=== PATIENT | male | born 1955 | race Caucasian/White ===

== ENCOUNTER → 2018-10-03 | Outpatient (CLI) | payer OTHER, SELFPAY ==
[2018-09-17 11:05] VITALS: BMI 34.9
--- NOTE | 2018-10-03 13:43 | CT_ITS ---
STUDY: CT CHEST WITHOUT CONTRAST REASON FOR EXAM: Male, 63 years old. Shortness of breath with exertion. RADIATION DOSAGE (If Supplied By Facility): CTDIvol = ( 14.8 ) mGy, DLP = ( 473.25 ) mGycm TECHNIQUE: Transaxial imaging was performed without the administration of intravenous contrast material. Multiplanar coronal and sagittal images were reformatted. Individualized dose optimization techniques were used for this CT. COMPARISON: None. FINDINGS: There is mild emphysema. There is dependent consolidation associated with air bronchograms within the right lower lobe. There is associated subpleural atelectasis within the right lower lobe. There are calcifications of the coronary arteries. There are enlarged right hilar lymph nodes present. There are prominent and mildly enlarged mediastinal lymph nodes visualized. Normal unenhanced pulmonary arteries. There is atherosclerotic calcification of the aortic arch and descending thoracic aorta. There are multi-level degenerative changes of the thoracic spine. The limited images of the upper abdomen demonstrate a too small to characterize low-attenuation focus within the right hepatic lobe. CT/Chest without Contrast IMPRESSION: Right lower lobe consolidation may be secondary to underlying pneumonia and/or atelectasis, recommend follow-up CT in 6-8 weeks for cannot exclude an underlying neoplastic process. Enlarged right hilar and mediastinal lymph nodes, may be reactive however a neoplastic process again cannot be excluded. Atherosclerosis. Electronically Signed: Gerda Fierro MD at 16:54 EDT Tel , Service support ,
== END | disposition home or self-care (01) ==
LOC: CT 13:41
PROVIDERS: Family Provider Nurse Practitioner Family; PCP Nurse Practitioner Family; Referring Provider Internal Medicine Critical Care Medicine; Visit Provider Internal Medicine Critical Care Medicine
DX: J84.9 Interstitial pulmonary disease, unspecified (principal)
CPT/HCPCS: 71250

== ENCOUNTER → 2018-10-08 | Outpatient (CLI) | payer OTHER, SELFPAY ==
[2018-09-17 11:05] VITALS: BMI 34.9
[2018-10-08 12:29] VITALS: PULSE 58; PULSE 63; PULSE 67; PULSE 69; PULSE 71; PULSE 72; PULSE 73; O2SAT 90; O2SAT 91; O2SAT 92; O2SAT 94; O2SAT 95
--- NOTE | 2018-10-08 13:33 | PCM.PSN.6M ---
PSN 6 Minute Walk Test - 6 Minute Walk Test 6 Minute Walk Test: 6 Minute Walk Test PSN:6-Minute Walk Test Start: 10/08/18 12:28 Freq: Status: Active Protocol: RESP.6MINW Document 10/08/18 12:29 LEONEL (Rec: 10/08/18 12:31 LEONEL [id number]) 6 Minute Walk Test Date Performed 10/08/18 Time Performed 12:30 Height 5 ft 8 in Weight: 103.419 kg Weight in Pounds 228.[address]: Russ Carbajal Pre-test Oxygen Delivery Method Room Air Pulse Ox (%) 94 Pulse Rate (60-100 beats/min) 58 L Dyspnea Elmo Scale (0-10) 0 Exertion Elmo Scale (6-20) 6 1st minute Oxygen Delivery Method Room Air Pulse Ox (%) 94 Pulse Rate (60-100 beats/min) 67 2nd minute Oxygen Delivery Method Room Air Pulse Ox (%) 91 Pulse Rate (60-100 beats/min) 69 3rd minute Oxygen Delivery Method Room Air Pulse Ox (%) 92 Pulse Rate (60-100 beats/min) 71 4th minute Oxygen Delivery Method Room Air Pulse Ox (%) 90 Pulse Rate (60-100 beats/min) 71 5th minute Oxygen Delivery Method Room Air Pulse Ox (%) 91 Pulse Rate (60-100 beats/min) 73 6th minute Oxygen Delivery Method Room Air Pulse Ox (%) 92 Pulse Rate (60-100 beats/min) 72 Dyspnea Elmo Scale (0-10) 1 Exertion Elmo Scale (6-20) 11 Post-test Oxygen Delivery Method Room Air Pulse Ox (%) 95 Pulse Rate (60-100 beats/min) 63 Full Laps Walked 18 Partial Lap, Number of Tiles Walked 6 Total Distance Walked (ft) 1068 - Interpretation Interpretation: The patient was able to ambulate 1068 feet over the course of 6 minutes on room air with no assistive devices or breaks. The patient did experience significant desaturation from a baseline of 94% to as low as 90% during ambulation. No significant tachycardia was noted. These findings are consistent with a respiratory limitation to exercise tolerance. - Recommendations Recommendations: No supplemental oxygen is indicated at this time. However, patient will need to be followed closely given level of desaturation.
== END | disposition home or self-care (01) ==
LOC: PSN 12:08
PROVIDERS: Family Provider Nurse Practitioner Family; PCP Nurse Practitioner Family; Referring Provider Internal Medicine Critical Care Medicine; Visit Provider Internal Medicine Critical Care Medicine
DX: F17.211 Nicotine dependence, cigarettes, in remission (principal)
CPT/HCPCS: 94618

== ENCOUNTER → 2018-10-28 10:48 | Outpatient (CLI) | payer OTHER, SELFPAY ==
[2018-09-17 11:05] VITALS: BMI 34.9
--- NOTE | 2018-10-29 08:11 | PFT ---
INTRODUCTION: The patient is a 63-year-old male that presents for pulmonary function studies secondary to a diagnosis of nicotine dependence. Respiratory therapy reports good patient effort. Bronchodilators were used during testing. INTERPRETATION: Forced expiration spirometry demonstrates no evidence of a large airways obstructive ventilatory defect. There was no significant response to aerosolized bronchodilators. Spirograms are of good quality and plateau normally. Body plethysmography was performed and reveals a decrease TLC to 4.47 L, 73% of predicted, indicative of a mild restrictive ventilatory impairment. The remainder of the lung volumes are symmetrically reduced. Diffusing capacity by single breath CO is at the lower limits of normal. IMPRESSION: Isolated mild restrictive ventilatory impairment with diffusing capacity at the lower limits of normal.
== END ==
PROVIDERS: Family Provider Nurse Practitioner Family; PCP Nurse Practitioner Family; Referring Provider Internal Medicine Critical Care Medicine; Visit Provider Internal Medicine Critical Care Medicine
DX: F17.211 Nicotine dependence, cigarettes, in remission (principal)
CPT/HCPCS: 94060; 94726; 94729

== ENCOUNTER → 2018-11-24 | Outpatient (CLI) | payer OTHER, SELFPAY ==
[2018-10-30 09:57] VITALS: BMI 34.9
--- NOTE | 2018-11-24 13:11 | CT_ITS ---
STUDY: CT CHEST WITH CONTRAST REASON FOR EXAM: Male, 63 years old. Recent pneumonia, evaluation for lymphadenopathy RADIATION DOSAGE (If Supplied By Facility): CTDIvol = ( 19.11 ) mGy, DLP = ( 800.58 ) mGycm TECHNIQUE: Transaxial imaging was performed following intravenous administration of 100 IV Isovue 300. Individualized dose optimization techniques were used for this CT. COMPARISON: 03 October 2018 FINDINGS: Right lower lobe consolidation from September of current year has resolved. There is miniscule atelectasis in the medial segment of the right middle lobe. There is mosaic attenuation of the lungs without focal or regional opacities. Airways are patent and of normal caliber. Pleural surfaces are normal. There are multiple lymph nodes distributed throughout the entire mediastinum with the largest accumulation in the right hilum. Largest right hilar lymph node measures 2 cm. Remainder of the lymph nodes are smaller in size. There is no axillary or infraclavicular lymphadenopathy. Cardiac chambers are normal in size and shape. There is severe coronary artery disease. There is mild pulmonary arterial hypertension. Pericardium is normal. Upper abdominal and osseous structures are unremarkable. CT/Chest WITH Contrast IMPRESSION: 1. Mediastinal lymph nodes, differential diagnosis is autoimmune disease, such as sarcoidosis, less likely lymphoproliferative related, such as lymphoma versus less likely distant primary neoplasm with metastasis. Sarcoidosis is most probable diagnosis. 2. Mosaic attenuation of the lungs, incompletely evaluated, this can be seen with small airway disease versus pulmonary vascular disease. This can be seen with sarcoidosis. 3. Severe coronary artery disease. Electronically Signed: Kin Lowry, at 18:27 EDT Tel , Service support ,
[2018-11-24 13:41] LABS: CREATININE FINGERSTICK 1.2 mg/dL (0.70-1.30)
== END | disposition home or self-care (01) ==
LOC: CT 13:10
PROVIDERS: Family Provider Nurse Practitioner Family; PCP Nurse Practitioner Family; Referring Provider Nurse Practitioner Acute Care; Visit Provider Nurse Practitioner Acute Care
DX: J18.9 Pneumonia, unspecified organism (principal)
CPT/HCPCS: 71260; Q9967; A4216

== ENCOUNTER → 2022-12-21 | Outpatient (CLI) | payer MEDICARE, OTHER, SELFPAY ==
--- NOTE | 2022-12-24 07:10 | PFT ---
INTRODUCTION: The patient is a 67-year-old male who presents for pulmonary function studies secondary to a diagnosis of shortness of breath. Respiratory therapy reported good patient effort. Bronchodilators were used during testing. INTERPRETATION: Forced expiration spirometry demonstrates no evidence of a large airways obstructive ventilatory defect. There was no significant response to aerosolized bronchodilators. Spirograms are of good quality and plateau normally. Body plethysmography was performed and revealed a decreased TLC to 4.82 L, 72% of predicted, indicative of a mild restrictive ventilatory impairment. Diffusing capacity by single breath CO was reduced at 36% of predicted. IMPRESSION: Mild restrictive ventilatory impairment with disproportionate reduction in diffusion capacity.
== END | disposition home or self-care (01) ==
PROVIDERS: PCP Family Medicine; Referring Provider Internal Medicine Critical Care Medicine; Visit Provider Internal Medicine Critical Care Medicine
DX: R06.02 Shortness of breath (principal)
CPT/HCPCS: 94060; 94726; 94729

== ENCOUNTER → 2022-12-27 | Outpatient (CLI) | payer MEDICARE, OTHER, SELFPAY ==
[2022-12-27 13:30] VITALS: PULSE 76; PULSE 77; PULSE 78; PULSE 79; PULSE 80; PULSE 81; PULSE 88; O2SAT 75; O2SAT 78; O2SAT 88; O2SAT 90; O2SAT 91; O2SAT 92; O2SAT 94
--- NOTE | 2022-12-27 14:19 | CPS ---
pt arrived on his home o2 of 4L nc. Sats on room air are 78% i placed him back on his pulse dose 4L. at 2 minutes his sats dropped to 85% so i increased to 6L nc. continuos. At end of test i did have to increase to 8L for patient to recover.
--- NOTE | 2022-12-28 11:27 | PCM.PSN.6M ---
PSN 6 Minute Walk Test 6 Minute Walk Test 6 Minute Walk Test: 6 Minute Walk Test PSN:6-Minute Walk Test Start: 12/27/22 14:15 Freq: Status: Active Protocol: RESP.6MINW Document 12/27/22 13:30 EW (Rec: 12/27/22 14:27 EW Desktop) 6 Minute Walk Test Date Performed 12/27/22 Time Performed 13:45 Height 5 ft 8 in Weight: 102.058 kg Weight in Pounds 225.[address]: Russ Carbajal Assistive device used: None Pre-test Oxygen Delivery Method Room Air Pulse Ox 78 Pulse Rate (60-100) 76 Dyspnea Elmo Scale (0-10) 2 Exertion Elmo Scale (6-20) 11 1st minute Oxygen Delivery Method Room Air Pulse Ox 75 Pulse Rate (60-100) 81 2nd minute Oxygen Flow Rate (L/min) 6 Oxygen Delivery Method Nasal Cannula Pulse Ox 92 Pulse Rate (60-100) 88 3rd minute Oxygen Flow Rate (L/min) 6 Oxygen Delivery Method Room Air Pulse Ox 94 Pulse Rate (60-100) 78 4th minute Oxygen Flow Rate (L/min) 6 Oxygen Delivery Method Nasal Cannula Pulse Ox 90 Pulse Rate (60-100) 79 5th minute Oxygen Flow Rate (L/min) 6 Oxygen Delivery Method Nasal Cannula Pulse Ox 91 Pulse Rate (60-100) 79 6th minute Oxygen Flow Rate (L/min) 6 Oxygen Delivery Method Nasal Cannula Pulse Ox 88 Pulse Rate (60-100) 80 Post-test Oxygen Flow Rate (L/min) 8 Oxygen Delivery Method Nasal Cannula Pulse Ox 92 Pulse Rate (60-100) 77 Dyspnea Elmo Scale (0-10) 3 Exertion Elmo Scale (6-20) 12 Full Laps Walked 9 Partial Lap, Number of Tiles Walked 0 Total Distance Walked (ft) 531 12/27/22 14:19 Cardiopulmonary Services by Mallory Salcedo pt arrived on his home o2 of 4L nc. Sats on room air are 78% i placed him back on his pulse dose 4L. at 2 minutes his sats dropped to 85% so i increased to 6L nc. continuos. At end of test i did have to increase to 8L for patient to recover. Initialized on 12/27/22 14:19 - END OF NOTE Interpretation Interpretation: AP The patient was noted to be saturating percent on room air at rest, but did improve to 94% with increased to 4 L nasal cannula. Unfortunately, patient did require 6 L to marginally controlled saturations with ambulation. In total, the patient traveled only 531 feet over the course of 6 minutes with no significant tachycardia. These findings are consistent with a respiratory limitation exercise tolerance. Recommendations Recommendations: The patient requires 4 L/min at rest, but should be using at least 6 L/min with any ambulation.
== END | disposition home or self-care (01) ==
PROVIDERS: PCP Family Medicine; Referring Provider Internal Medicine Critical Care Medicine; Visit Provider Internal Medicine Critical Care Medicine
DX: R06.02 Shortness of breath (principal)
CPT/HCPCS: 94618

== ENCOUNTER → 2023-04-02 | Outpatient (CLI) | payer MEDICARE, OTHER, SELFPAY ==
--- NOTE | 2023-04-02 13:54 | ECHOD_ITS ---
Reason For Study: SOB Procedure This was a 2D Doppler, Color Flow transthoracic echocardiogram. Exam performed in department. Left Ventricle Normal LV size. Mild concentric left ventricular hypertrophy. Left ventricular systolic function is normal. The estimated ejection fraction is 75 %. Stage 1 diastolic dysfunction. No regional wall motion abnormalities noted. Right Ventricle Normal RV size. Normal systolic function. Atria Normal left atrium. Normal right atrium. Mitral Valve There is mild mitral annular calcification. Tricuspid Valve Normal tricuspid valve. Aortic Valve Trisinus/trileaflet aortic valve. Mild focal aortic valve calcification. Pulmonic Valve Normal pulmonic valve. Great Vessels Normal aortic root. The pulmonary artery is normal size. Normal inferior vena cava. Pericardium/Pleural No pericardial effusion. MMode/2D Measurements & Calculations LVIDd: 4.9 cm IVSd: 1.2 cm Ao root diam: 2.9 cm LVIDs: 2.9 cm LVPWd: 1.2 cm RVDd: 4.0 cm FS: 41.6 % LAV(MOD-bp): 43.8 ml LVAd ap4: 29.2 cm2 LVAd ap2: 32.9 cm2 LAV(MOD-bp) Indexed: 20.6 ml/m2 LVLd ap4: 8.7 cm LVLd ap2: 8.7 cm LAV(MOD-sp2): 41.0 ml EDV(MOD-sp4): 81.3 ml EDV(MOD-sp2): 102.6 ml LAV(MOD-sp4): 46.3 ml EDV(sp4-el): 83.4 ml EDV(sp2-el): 105.9 ml LVAs ap4: 12.2 cm2 LVAs ap2: 13.6 cm2 LVLs ap4: 7.4 cm LVLs ap2: 7.3 cm ESV(MOD-sp4): 17.9 ml ESV(MOD-sp2): 23.0 ml ESV(sp4-el): 17.1 ml ESV(sp2-el): 21.5 ml EF(MOD-sp4): 78.0 % EF(MOD-sp2): 77.6 % EF(sp4-el): 79.5 % SV(MOD-sp4): 63.3 ml SV(MOD-sp2): 79.6 ml SV(sp4-el): 66.2 ml LA dimension(2D): 4.3 cm LA A4 area: 17.3 cm2 RA A4 area: 16.2 cm2 TAPSE: 3.2 cm Time Measurements MV dec time: 0.22 sec Doppler Measurements & Calculations MV E max justin: 98.1 cm/sec Lat Peak E' Justin: 8.9 cm/sec Med Peak E' Justin: 6.3 cm/sec MV A max justin: 122.3 cm/sec E/E' lat: 11.1 E/E' med: 15.5 MV E/A: 0.80 MV dec slope: 449.2 cm/sec2 Ao V2 max: 208.1 cm/sec PA V2 max: 129.9 cm/sec Ao max P.3 mmHg Ao V2 mean: 128.1 cm/sec Ao mean P.6 mmHg Ao V2 VTI: 37.4 cm ECHO/Echo Complete Interpretation Summary Normal LV size. Mild concentric left ventricular hypertrophy. Left ventricular systolic function is normal. The estimated ejection fraction is 75 %. Stage 1 diastolic dysfunction. Ordering Physician: Sheri Vazquez Referring Physician: Nahid Johnson Performed By: Fara Bey RDCS
== END | disposition home or self-care (01) ==
LOC: CVS 13:51
PROVIDERS: PCP Family Medicine; Referring Provider Nurse Practitioner Acute Care; Visit Provider Nurse Practitioner Acute Care
DX: R06.02 Shortness of breath (principal)
CPT/HCPCS: 93306

== ENCOUNTER → 2023-04-24 | Outpatient (CLI) | payer MEDICARE, OTHER, SELFPAY ==
--- NOTE | 2023-04-24 18:42 | CT_ITS ---
STUDY: CT CHEST WITHOUT CONTRAST REASON FOR EXAM: Male, 68 years old. Eval for ILD -- High Resolution Scan RADIATION DOSAGE (If Supplied By Facility): CTDIvol = ( 19.10 ) mGy, DLP = ( 679.40 ) mGycm TECHNIQUE: Transaxial imaging was performed without the administration of intravenous contrast material. Multiplanar coronal and sagittal images were reformatted. Individualized dose optimization techniques were used for this CT. COMPARISON: Comparison is made with prior study dated November 24, 2018. FINDINGS: CHEST The lungs are normal. There is no demonstrated pleural abnormality. There are calcifications of the coronary arteries. There are multiple small lymph nodes within the mediastinum, which are normal in size and morphology most compatible with reactive lymph hyperplasia. Normal hilar regions. Normal unenhanced pulmonary arteries. There is atherosclerotic calcification of the aortic arch with tortuosity and elongation of the aortic arch and descending thoracic aorta. There are degenerative changes of the thoracic spine. There is no demonstrated abnormality of the visualized upper abdomen. CT/Chest without Contrast IMPRESSION: Small benign-appearing mediastinal lymph nodes. Coronary artery calcification. No significant interstitial fibrosis is seen. Electronically Signed: Antelmo Mansfield MD at 14:25 EST ,
== END | disposition home or self-care (01) ==
LOC: CT 18:40
PROVIDERS: PCP Family Medicine; Referring Provider Internal Medicine Critical Care Medicine; Visit Provider Internal Medicine Critical Care Medicine
DX: J84.9 Interstitial pulmonary disease, unspecified (principal)
CPT/HCPCS: 71250

== ENCOUNTER → 2023-06-12 | Outpatient (CLI) | payer MEDICARE, OTHER, SELFPAY ==
[2023-06-12 16:27] LABS: Anion Gap 10 (5-15); BUN 60 mg/dL (7-18); BUN/Creat Ratio 23.8 RATIO (10-20); Calcium,Total 8.9 mg/dL (8.5-10.1); Chloride 103 mmol/L (98-107); Creatinine, Serum 2.52 mg/dL (0.70-1.30); EST Glomerular Filtration Rate 27 mL/min (>60); Est Glom Filt Rate - Afr Amer 33 mL/min (>60); Glucose 396 mg/dL (74-106); Potassium 4.5 mmol/L (3.5-5.1); Sodium Level 136 mmol/L (136-145)
== END | disposition home or self-care (01) ==
LOC: LAB 15:05
PROVIDERS: PCP Family Medicine; Referring Provider Nurse Practitioner Acute Care; Visit Provider Nurse Practitioner Acute Care
DX: R06.02 Shortness of breath (principal)
CPT/HCPCS: 36415; 80048

== ENCOUNTER → 2023-07-09 | Outpatient (CLI) | payer MEDICARE, OTHER, SELFPAY ==
--- NOTE | 2023-07-09 12:46 | NM_ITS ---
CLINICAL: 68-year-old male with history of shortness of breath and presenting hypoxemia. VENTILATION-PERFUSION LUNG SCINTIGRAPHY COMPARISON: CT of the chest 04/24/2023 FINDINGS: The patient was administered 56.4 mCi 99m Tc DTPA aerosol. The aerosol ventilation study demonstrates normal ventilation defined in the bilateral lung zayas. No segmental or subsegmental ventilatory defects are identified. There is no central clumping of the aerosol visualized. Following the intravenous administration of 6.0 mCi of 99m Tc MAA, the pulmonary perfusion study reveals uniform perfusion throughout both lung zayas. There are no segmental or subsegmental perfusion defects consistently identified on review of sequential acquisitions-projections. NM/Lung Scan Vent/Perf IMPRESSION: 1. NORMAL 99m Tc DTPA aerosol ventilation/Tc 99m MAA pulmonary perfusion imaging examination, according to PIOPED II interpretive criteria. (Sotsman et al, Radiology 246: 941, 2008 Sojelani et al, J Nucl Med 49: 1741, 2008). Electronically Signed: Xavier De Leon DO at 23:41 EDT ,
== END | disposition home or self-care (01) ==
LOC: NM 12:40
PROVIDERS: PCP Family Medicine; Referring Provider Nurse Practitioner Acute Care; Visit Provider Nurse Practitioner Acute Care
DX: R06.02 Shortness of breath (principal)
CPT/HCPCS: 78582; A9540; A9567

== ENCOUNTER → 2023-07-16 | Outpatient (CLI) | payer MEDICARE, OTHER, SELFPAY ==
--- NOTE | 2023-07-16 14:49 | ECHOD_ITS ---
Reason For Study: Dyspnea/SOB Procedure This was a 2D Doppler, Color Flow transthoracic echocardiogram. Exam performed in department. Left Ventricle Normal LV size. Left ventricular systolic function is normal. The estimated ejection fraction is 65 %. No regional wall motion abnormalities noted. Right Ventricle Normal RV size. Normal systolic function. Atria Normal left atrium. Normal right atrium. Bubble contrast study negative for right to left interatrial shunt. Mitral Valve There is mild mitral annular calcification. Tricuspid Valve Normal tricuspid valve. Aortic Valve Trisinus/trileaflet aortic valve. Pulmonic Valve Normal pulmonic valve. Great Vessels Normal aortic root. The pulmonary artery is normal size. Normal inferior vena cava. Pericardium/Pleural No pericardial effusion. Medication 22 gauge I.V. with prn adaptor inserted into right arm. Performed a rapid injection of agitated mix of 9 cc saline and 1cc air to assess for atrial septal defect. MMode/2D Measurements & Calculations LVIDd: 5.0 cm IVSd: 1.1 cm Ao root diam: 3.0 cm LVIDs: 3.1 cm LVPWd: 1.3 cm LA dimension: 4.3 cm RVDd: 3.8 cm FS: 37.6 % LAV(MOD-bp): 54.7 ml LA A4 area: 20.3 cm2 RA A4 area: 17.3 cm2 LAV(MOD-bp) Indexed: 25.4 ml/m2 LAV(MOD-sp2): 51.7 ml LAV(MOD-sp4): 58.4 ml TAPSE: 2.2 cm Time Measurements MV dec time: 0.18 sec Doppler Measurements & Calculations MV E max justin: 115.4 cm/sec Lat Peak E' Justin: 9.7 cm/sec Med Peak E' Justin: 9.2 cm/sec MV A max justin: 111.7 cm/sec E/E' lat: 11.9 E/E' med: 12.6 MV E/A: 1.0 MV V2 max: 125.5 cm/sec MV P1/2t max justin: 125.5 cm/sec Ao V2 max: 206.3 cm/sec MV max P.3 mmHg MV P1/2t: 60.7 msec Ao max P.0 mmHg MV V2 mean: 64.8 cm/sec MV dec slope: 605.3 cm/sec2 MV mean P.1 mmHg MVA(P1/2t): 3.6 cm2 MV V2 VTI: 43.8 cm LV V1 max: 156.8 cm/sec PA V2 max: 116.2 cm/sec LV V1 max P.8 mmHg ECHO/Echo Complete Interpretation Summary Normal LV size. Left ventricular systolic function is normal. The estimated ejection fraction is 65 %. Bubble contrast study negative for right to left interatrial shunt. Ordering Physician: Sheri Vazquez Referring Physician: Sheri Vazquez Performed By: Doni Fuentes RCS
== END | disposition home or self-care (01) ==
LOC: CVS 14:49
PROVIDERS: PCP Family Medicine; Referring Provider Nurse Practitioner Acute Care; Visit Provider Nurse Practitioner Acute Care
DX: R06.02 Shortness of breath (principal)
CPT/HCPCS: 93306